=== PATIENT | male | born 1965 | race American Indian/Alaskan Native ===

== ENCOUNTER 2019-04-29 07:50 | Emergency (ER) | payer OTHER ==
--- NOTE | 2019-04-29 10:22 | Emergency Department Report ---
ED Fall HPI - General Chief Complaint: Fall Stated Complaint: BACK PAIN DUE TO GROUND LEVEL FALL Time Seen by Provider: 04/29/19 09:54 Source: patient Mode of arrival: Stretcher - History of Present Illness Initial Comments: 53 YO AA MALE COMES TO ER SP SLIPPING ON WET GROUND THIS AM IN DRIVE WAY. HE FALL BACK AND LANDED ON BUTT AND BACK. NO LOC. DID NOT HIT HEAD. AMBULATORY TO ER. WITNESSED. MECHANICAL AND GROUND LEVEL. NO PRODROME OF MED SYMPTOM PRIOR TO FALL. FAMILY WITNESSED. 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 Witnessed: yes, by family Place Fall Occurred: home Loss of Consciousness: none Prolonged Down Time?: no Symptoms Prior to Fall: none Severity: mild Context: tripped/slipped Associated Symptoms: denies - Related Data Previous Rx's Medication Instructions Recorded Last Taken Type Ibuprofen [Motrin] 800 mg PO Q8HR PRN #30 tablet 04/29/19 Unknown Rx Allergies Allergy/AdvReac Type Severity Reaction Status Date / Time No Known Allergies Allergy Unverified 04/29/19 08:36 ED Review of Systems ROS: Stated complaint: BACK PAIN DUE TO GROUND LEVEL FALL Other details as noted in HPI Comment: All other systems reviewed and negative ED Past Medical Hx - Past Medical History Previous Medical History?: Yes Hx Hypertension: Yes Hx Diabetes: Yes - Surgical History Past Surgical History?: No - Family History Family history: no significant - Social History Smoking Status: Current Every Day Smoker Substance Use Type: Alcohol - Medications Home Medications: Home Medications Medication Instructions Recorded Confirmed Last Taken Type Ibuprofen [Motrin] 800 mg PO Q8HR PRN #30 tablet 04/29/19 Unknown Rx ED Physical Exam - General Limitations: No Limitations General appearance: alert, in no apparent distress - Head Head exam: Present: atraumatic, normocephalic - Eye Eye exam: Present: normal appearance - ENT ENT exam: Present: mucous membranes moist - Neck Neck exam: Present: normal inspection - Respiratory Respiratory exam: Present: normal lung sounds bilaterally. Absent: respiratory distress - Cardiovascular Cardiovascular Exam: Present: regular rate, normal rhythm. Absent: systolic murmur, diastolic murmur, rubs, gallop - GI/Abdominal GI/Abdominal exam: Present: soft, normal bowel sounds - Rectal Rectal exam: Present: deferred - Extremities Exam Extremities exam: Present: normal inspection - Back Exam Back exam: Present: normal inspection - Neurological Exam Neurological exam: Present: alert, oriented X3 - Psychiatric Psychiatric exam: Present: normal affect, normal mood - Skin Skin exam: Present: warm, dry, intact, normal color. Absent: rash ED Course Vital Signs 04/29/19 08:35 Temperature 98.0 F Pulse Rate 77 Respiratory 18 Rate Blood Pressure 151/98 O2 Sat by Pulse 98 Oximetry - Reevaluation(s) Reevaluation #1: 04/29/19 11:44 ON DC FROM ER PT TOLD RN HE HAD STD EXPOSURE- AND WANTED TREATED- REFERRED TO PCP ED Medical Decision Making - Radiology Data Radiology results: report reviewed, image reviewed - Medical Decision Making Vital Signs 04/29/19 08:35 Temperature 98.0 F Pulse Rate 77 Respiratory 18 Rate Blood Pressure 151/98 O2 Sat by Pulse 98 Oximetry AMBULATORY TO ER NO NEURO DEF NO SPINE TENDERNESS MECHANICAL AND GROUND LEVEL NO LOC WITNESSED FALL XRAY NOTED DC HOME WITH FAMILY AND PCP FOLLOW UP - Differential Diagnosis ro fx Critical care attestation.: If time is entered above; I have spent that time in minutes in the direct care of this critically ill patient, excluding procedure time. ED Disposition Clinical Impression: Fall from ground level, Back pain, Accident due to mechanical fall without injury Disposition: DC-01 TO HOME OR SELFCARE Is pt being admited?: No Does the pt Need Aspirin: No Condition: Stable Instructions: Musculoskeletal Pain (ED) Additional Instructions: med as ordered for pain warm baths may be sore for a few days follow up with pcp in 48 hours for recheck xrays normal today Prescriptions: Ibuprofen [Motrin] 800 mg PO Q8HR PRN #30 tablet PRN Reason: Pain, Moderate (4-6) Referrals: [facility] [Primary Care Provider] - 3-5 Days WING GARCIA MD [Staff Physician] - 3-5 Days CIPRIANO SANTILLAN MD [Staff Physician] - 3-5 Days Time of Disposition: 11:21
--- NOTE | 2019-04-29 11:11 | XRay Report ---
CERVICAL SPINE HISTORY: Pain after fall. COMPARISON: None. TECHNIQUE: 3 view(s) of the cervical spine obtained. FINDINGS: Vertebrae: Normal alignment. No fracture . Disc Spaces:Degenerative disc disease with anterior osteophytes at C5-6 and C6-7. The disc spaces are preserved. Facet Joints:No significant abnormality. Prevertebral Soft Tissues:No significant abnormality. Additional findings: None. IMPRESSION: 1. Degenerative disc disease at C5-6 and C6-7. 2. No apparent traumatic injury. Signer Name: Mahesh Woodson MD Signed: 04/29/2019 11:06 AM Workstation Name: [id number]
--- NOTE | 2019-04-29 11:12 | XRay Report ---
LUMBAR SPINE 3 VIEWS INDICATION / CLINICAL INFORMATION: pain sp fall. COMPARISON: None available. FINDINGS: VERTEBRAE: No acute fracture. No significant malalignment. DISC SPACES / FACET JOINTS:The disc spaces are preserved. Anterior osteophytes at multiple levels and most prominent at L4-5 and L3-4. Moderate multilevel facet joint sclerosis. PARASPINAL SOFT TISSUES:No significant abnormality. ADDITIONAL FINDINGS: None. IMPRESSION: 1. Degenerative disc disease and multilevel facet joint arthropathy. 2. No apparent traumatic injury. Signer Name: Mahesh Woodson MD Signed: 04/29/2019 11:08 AM Workstation Name: [id number]
[2019-04-29] MEDS ORDERED: IBUPROFEN 800 MG TAB PO ONE (11:23)
[2019-04-29 11:51] VITALS: BP 149/81
== END 2019-04-29 11:48 | disposition home or self-care (01) ==
LOC: ED 07:50
DX: M54.89 Other dorsalgia (principal); I10 Essential (primary) hypertension; E11.9 Type 2 diabetes mellitus without complications; F17.200 Nicotine dependence, unspecified, uncomplicated; W01.0XXA Fall on same level from slipping, tripping and stumbling without subsequent striking against object, initial encounter; Y93.89 Activity, other specified; Y92.89 Other specified places as the place of occurrence of the external cause; Y99.8 Other external cause status
CPT/HCPCS: 72040; 72100